=== PATIENT | male | born 1960 | race Asian ===

== ENCOUNTER 2018-10-13 11:44 | Inpatient (IN) | payer MEDICAID ==
[~2018-10-13] VITALS: Ht 157.5 cm; Wt 63.5 kg
[2018-10-13 11:55] VITALS: BP_SYST 146
[2018-10-13] MEDS ORDERED: NACL 0.9% 1,000 ML IV ONE (12:30)
[2018-10-13 13:03] LABS: BILIRUBIN,URINE NEGATIVE (NEGATIVE); BLOOD, URINE NEGATIVE (NEGATIVE); CLARITY/URINE CLEAR (CLEAR); COLOR,URINE YELLOW (YELLOW); GLUCOSE,URINE NEGATIVE (NEGATIVE); KETONES,URINE NEGATIVE (NEGATIVE); LEUKOCYTE ESTERASE ,URINE NEGATIVE (NEGATIVE); NITRITE, URINE NEGATIVE (NEGATIVE); PROTEIN URINE NEGATIVE (NEGATIVE); UROBILINOGEN,URINE 0.2 (0.2-1.0)
[2018-10-13 13:06] LABS: CALCIUM 9.5 mg/dL (8.4-11.0); CREATININE 0.75 mg/dL (0.55-1.30); POTASSIUM 4.3 mmol/L (3.5-5.1)
[2018-10-13 13:08] LABS: BASOPHILS # (AUTO) 0.1 K/uL (0.0-0.2); BASOPHILS % (AUTO) 1.2 % (0.0-2.0); HEMATOCRIT 44.8 % (36-54); HEMOGLOBIN 14.3 g/dL (14.0-18.0); LYMPHOCYTES # (AUTO) 2.5 K/uL (1.0-5.5); MEAN CORPUSCULAR HEMOGLOBIN 29 pg (27-31); MEAN CORPUSCULAR HGB CONC 32 % (32-36); MEAN CORPUSCULAR VOLUME 91 fL (79.0-98.0); MONOCYTES # (AUTO) 0.4 K/uL (0.0-1.0); MONOCYTES % (AUTO) 4.2 % (1.7-9.3); NEUTROPHILS # (AUTO) 5.6 K/uL (1.8-7.7); NEUTROPHILS % (AUTO) 58.6 % (40.0-70.0); PLATELET COUNT (AUTO) 364 K/uL (130-430); RED BLOOD CELL COUNT(AUTO) 4.92 MIL/uL (4.2-6.2); RED CELL DISTRIBUTION WIDTH 12.7 % (9.0-15.0); WHITE BLOOD COUNT (AUTO) 9.6 K/uL (4.8-10.8)
[2018-10-13 13:11] LABS: ALBUMIN 3.8 g/dL (3.4-4.8); INR 0.9 (0.80-1.20); TOTAL BILIRUBIN 0.2 mg/dL (0.0-1.0)
[2018-10-13 15:22] VITALS: BP_SYST 160
[2018-10-13 20:00] VITALS: BP_SYST 138
[2018-10-13] MEDS ORDERED: ACETAMINOPHEN 500 MG TABLET PO PRN (22:00)
[2018-10-13] MEDS ORDERED: amLODIPine BESYLATE 10 MG TABLET PO ONE (23:00)
[2018-10-14 00:55] VITALS: BP_SYST 146
[2018-10-14 07:30] VITALS: BP_SYST 119
[2018-10-14] MEDS ORDERED: amLODIPine BESYLATE 10 MG TABLET PO SCH (09:00)
[2018-10-14] MEDS ORDERED: ENOXAPARIN SODIUM 40 MG/0.4 ML SYRINGE SUBCUT SCH (09:00)
[2018-10-14 12:17] VITALS: BP_SYST 138
[2018-10-14 16:21] VITALS: BP_SYST 116
[2018-10-14 19:23] VITALS: BP_SYST 116
== END 2018-10-14 19:50 | disposition home or self-care (01) | DRG 48 ==
LOC: SED 11:44 → SMU 14:56
PROVIDERS: ADMIT Family Medicine; ATTEND Family Medicine
DX: G62.9 Polyneuropathy, unspecified (principal); F17.200 Nicotine dependence, unspecified, uncomplicated; I10 Essential (primary) hypertension; Z23 Encounter for immunization
CPT/HCPCS: 36415; 70450-TC; 71045; 72110; 80053; 81003; 83605; 84484; 85025; 85610-TC; 85730-TC; 87040-TC; 87086; 90656; 93005; 96360; 97110-GP; 99285; J1650; J7030